=== PATIENT | male | born 1965 | race Two or more races ===

== ENCOUNTER 2017-10-25 15:29 | Emergency (ER) | payer OTHER ==
[~2017-10-25] VITALS: Ht 165.1 cm; Wt 101.6 kg
[~2017-10-25 15:29] MED LIST: AMOX1TAB12 PO; DIOVAN HCT 320/1 TA2; HYDROCHLOROTH12.5 M1; LIPITOR20 MG; PROVENTIL3 ML/2.5 M IH; TUSSI PRES-B L120 M1 PO; VISTARIL25 MG PO; ZITHROMAX500 MG PO; ZYNCOF 20-400120 ML PO
[2017-10-25] MEDS ORDERED: TOPROL XL25 M1 (16:02)
[2017-10-25] MEDS ORDERED: WELLBUTRIN SR100 MG (16:03)
== END 2017-10-25 20:30 | disposition home or self-care (01) ==
LOC: ER 15:29
DX: S83.8X2A Sprain of other specified parts of left knee, initial encounter (principal); W01.0XXA Fall on same level from slipping, tripping and stumbling without subsequent striking against object, initial encounter; Y93.01 Activity, walking, marching and hiking; Y92.89 Other specified places as the place of occurrence of the external cause; Y99.8 Other external cause status

== ENCOUNTER 2018-03-16 17:51 | Emergency (ER) | payer OTHER ==
[~2018-03-16] VITALS: Ht 165.1 cm; Wt 102.1 kg
[~2018-03-16 17:51] MED LIST changes: +TOPROL XL25 M1; +WELLBUTRIN SR100 MG
== END 2018-03-16 20:39 | disposition home or self-care (01) ==
LOC: ER 17:51
DX: F41.9 Anxiety disorder, unspecified (principal); T40.7X5A Adverse effect of cannabis (derivatives), initial encounter; Y92.89 Other specified places as the place of occurrence of the external cause

== ENCOUNTER 2018-07-02 18:44 | Emergency (ER) | payer OTHER ==
[~2018-07-02] VITALS: Ht 167.6 cm; Wt 99.8 kg
== END 2018-07-02 20:57 | disposition home or self-care (01) ==
LOC: ER 18:44
DX: T15.11XA Foreign body in conjunctival sac, right eye, initial encounter (principal); W45.8XXA Other foreign body or object entering through skin, initial encounter; Y93.89 Activity, other specified; Y92.89 Other specified places as the place of occurrence of the external cause; Y99.8 Other external cause status

== ENCOUNTER 2023-07-08 13:12 | Emergency (ER) | payer OTHER ==
[~2023-07-08] VITALS: Ht 165.1 cm; Wt 102.1 kg
[~2023-07-08 13:12] MED LIST changes: +CLONAZEPAM0.5 MG
== END 2023-07-08 15:53 | disposition home or self-care (01) ==
LOC: ER 13:12
DX: S71.101A Unspecified open wound, right thigh, initial encounter (principal); X58.XXXA Exposure to other specified factors, initial encounter; Y93.89 Activity, other specified; Y92.89 Other specified places as the place of occurrence of the external cause; Y99.8 Other external cause status; I10 Essential (primary) hypertension; E11.9 Type 2 diabetes mellitus without complications